=== PATIENT | male | born 2000 | race Caucasian/White ===

== ENCOUNTER 2022-02-09 19:48 | Emergency (ER) | payer MEDICAID, SELFPAY ==
--- NOTE | 2022-02-09 19:52 | EKG12_ITS ---
Test Reason : [facility] [place] Pressure : / mmHG Vent. Rate : 092 BPM Atrial Rate : 092 BPM P-R Int : 158 ms QRS Dur : 100 ms QT Int : 332 ms P-R-T Axes : 045 015 027 degrees QTc Int : 410 ms Normal sinus rhythm Normal ECG Confirmed by ELLEN MARTINEZ, BETHEL ([id number]), school photograph editor KALI HELM ([id number]) on 02/10/2022 1:49:27 PM Referred By: HORACE Confirmed By:BETHEL HUGHES MD
[2022-02-09 19:53] VITALS: BP 150/77; PULSE 103; RESP 16; TEMP 36.7; O2SAT 96; BMI 42.6
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
[2022-02-09 20:59] LABS: Amphetamine Urine VISTA NEGATIVE (<1000 ng/mL); Barbiturate Urine VISTA NEGATIVE (< 200 ng/mL); Benzodiazepine Urine VISTA NEGATIVE (< 200 ng/mL); Cocaine Urine VISTA NEGATIVE (< 300 ng/mL); Ecstacy Urine VISTA NEGATIVE (< 500 ng/mL); Methadone Urine VISTA NEGATIVE (< 300 ng/mL); PCP Urine VISTA NEGATIVE (< 25 ng/mL); THC Urine VISTA NEGATIVE (< 50 ng/mL); Vista UDS pH Range 5
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
[2022-02-09 21:24] LABS: Absolute Neutrophil Count 10.7 X10^3/uL (2.0-7.7); Basophil# 0.05 X10^3/uL; Basophil% 0.4 % (0-1); Eosinophil# 0.08 X10^3/uL; Eosinophils% 0.6 % (0-5); Hematocrit 48.1 % (40-54); Hemoglobin 16.8 g/dL (13.0-16.5); Lymphocyte % 14.7 % (19-41); Mean Corp Hgb Conc 34.9 g/dL (32-36); Mean Corpuscular Hgb 30.1 pg (27.0-32.0); Mean Platelet Vol. 9.5 fl (6.2-12.0); Monocyte# 0.76 X10^3/uL; Monocyte% 5.6 % (0-10); NRBC Flagged by Analyzer 0 % (0-5); Neutrophil # 10.65 X10^3/uL (2.7-7.7); Neutrophil % 78.3 % (47-70); Platelet Count 265 K/mm3 (150-450); RBC Distribution Width CV 12.8 % (11.6-14.6); RBC Distribution Width SD 39.7 fl (35.1-43.9); Red Blood Count 5.59 M/mm3 (4.6-6.2); White Blood Count 13.6 K/mm3 (4.4-11.0)
[2022-02-09 21:37] LABS: Anion Gap 8 (5-15); BUN 16 mg/dL (7-18); BUN/Creat Ratio 14.2 RATIO (10-20); Calcium,Total 9.5 mg/dL (8.5-10.1); Chloride 106 mmol/L (98-107); Creatinine, Serum 1.13 mg/dL (0.70-1.30); EST Glomerular Filtration Rate 88 mL/min (>60); Est Glom Filt Rate - Afr Amer 106 mL/min (>60); Glucose 118 mg/dL (74-106); Potassium 3.5 mmol/L (3.5-5.1); Sodium Level 139 mmol/L (136-145)
--- NOTE | 2022-02-09 22:18 | CM.ED ---
ÁLVARO called Dario at [facility]. They have beds. ÁLVARO faxed referral to [facility] for review. ÁLVARO faxed covid screen, when completed to [facility]. Xochitl MCCALL
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
--- NOTE | 2022-02-09 22:27 | CM.ED ---
ÁLVARO called Dario at [facility]. Dario said that patient did well the past 2 times he was at their facility but declined patient possibility due to the acuity on the unit. ÁLVARO called Jeri at Crisis and updated her. ÁLVARO faxed referral packet to Jeri. ÁLVARO asked if there was anything additional Jeri needed and she said no. ÁLVARO updated [facility] charge and RN Juanita. Plan: Inpatient psych to be determined Xochitl MCCALL
[2022-02-09 23:25] VITALS: PULSE 76; RESP 17
[2022-02-10 00:13] VITALS: PULSE 67; RESP 16
[2022-02-10 02:00] VITALS: RESP 16
[2022-02-10] MEDS: hydrOXYzine PAM 25 MG Capsule 50 MG PO (03:11)
[2022-02-10] MEDS: ARIPiprazole 10 MG Tablet PO (03:11)
[2022-02-10 03:12] VITALS: BP 133/61; PULSE 87; RESP 16; O2SAT 97
[2022-02-10 05:00] VITALS: BP 129/63; PULSE 87; RESP 16; TEMP 37.1; O2SAT 96
[2022-02-10 05:34] VITALS: BP 129/63; PULSE 87; RESP 15; TEMP 37.1; O2SAT 96
--- NOTE | 2022-02-10 07:22 | NURSING ---
faxed pink slip to [facility] [phone]
== END 2022-02-10 07:22 ==
PROVIDERS: Emergency Provider Emergency Medicine; PCP Family Medicine; Visit Provider Emergency Medicine
DX: F25.9 Schizoaffective disorder, unspecified (principal); F31.9 Bipolar disorder, unspecified; R45.850 Homicidal ideations; R45.851 Suicidal ideations; Z87.891 Personal history of nicotine dependence
CPT/HCPCS: 80048; 80307; 82077; 85025; 87811; 93005; 99285

== ENCOUNTER 2023-10-18 09:33 | Emergency (ER) | payer MEDICAID, SELFPAY ==
[2023-10-18] VITALS (8 sets, daily range): BP systolic 126–147; BP diastolic 67–81; PULSE 74–117; RESP 14–18; TEMP 35.9–36.7; O2SAT 97–99; BMI 46.6
--- NOTE | 2023-10-18 09:48 | EKG12_ITS ---
Test Reason : Blood Pressure : / mmHG Vent. Rate : 115 BPM Atrial Rate : 115 BPM P-R Int : 128 ms QRS Dur : 094 ms QT Int : 316 ms P-R-T Axes : 050 011 028 degrees QTc Int : 437 ms Sinus tachycardia Otherwise normal ECG Confirmed by GAVIN MARTINEZ, GAVI ([id number]), development editor TAMMIE LITTLE ([id number]) on 10/19/2023 8:18:23 AM Referred By: Confirmed By:GAVI ALONSO MD
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
[2023-10-18 10:26] LABS: Bacteria 0 SEEN /hpf (None Seen); Mucous, Urine 0 SEEN /hpf (<or=2+); Red Blood Cells-Urine 0 SEEN /hpf (0-5); Squamous Epithelial Cells - UA 0 SEEN /hpf (0-5)
[2023-10-18 10:35] LABS: Color, Urine Yellow (Yellow); Glucose, Dipstick Normal (Normal); Ketone-Dipstick Negative (Negative); Leukocyte Esterase-Dipstick 25 /ul (Negative); Nitrite-Dipstick Negative (Negative); Occult Blood-Urine Negative /ul (Negative); Protein-Dipstick 15 mg/dl (Negative); Specific Gravity, Urine 1.015 (1.002-1.030); Urine Bilirubin Dipstick Negative (Negative); Urine Clarity Clear (Clear); Urine Urobilinogen Normal (Normal)
[2023-10-18 10:37] LABS: White Blood Cells 0-5 SEEN /hpf (0-5)
[2023-10-18 11:03] LABS: Amphetamine Urine VISTA NEGATIVE (<1000 ng/mL); Barbiturate Urine VISTA NEGATIVE (< 200 ng/mL); Benzodiazepine Urine VISTA NEGATIVE (< 200 ng/mL); Cocaine Urine VISTA NEGATIVE (< 300 ng/mL); Ecstacy Urine VISTA NEGATIVE (< 500 ng/mL); Methadone Urine VISTA NEGATIVE (< 300 ng/mL); PCP Urine VISTA NEGATIVE (< 25 ng/mL); THC Urine VISTA POSITIVE (< 50 ng/mL); Vista UDS pH Range 5
[2023-10-18 11:29] LABS: Hematocrit 45.2 % (40-54); Hemoglobin 15.2 g/dL (13.0-16.5); Mean Corp Hgb Conc 33.6 g/dL (32-36); Mean Corpuscular Hgb 29.1 pg (27.0-32.0); Mean Corpuscular Volume 86.4 fL (80-94); Mean Platelet Vol. 9.9 fl (6.2-12.0); Platelet Count 280 K/mm3 (150-450); RBC Distribution Width CV 12.9 % (11.6-14.6); RBC Distribution Width SD 40.2 fl (35.1-43.9); Red Blood Count 5.23 M/mm3 (4.6-6.2); White Blood Count 10.6 K/mm3 (4.4-11.0)
[2023-10-18 11:42] LABS: AST(SGOT) 24 U/L (15-37); Alanine Aminotransfer ALT/SGPT 39 U/L (16-61); Albumin, Serum 3.6 g/dL (3.2-5.0); Alkaline Phosphatase 104 U/L (45-117); Anion Gap 4 (5-15); BUN 23 mg/dL (7-18); BUN/Creat Ratio 23.8 RATIO (10-20); Bilirubin, Direct 0.09 mg/dL (0.00-0.30); Calcium,Total 9.1 mg/dL (8.5-10.1); Chloride 106 mmol/L (98-107); Creatinine, Serum 0.97 mg/dL (0.70-1.30); EST Glomerular Filtration Rate 103 mL/min (>60); Est Glom Filt Rate - Afr Amer 125 mL/min (>60); Estimated Creatinine Clearance 154.57 ml/min; Globulin 3.7 g/dL (2.2-4.2); Glucose 130 mg/dL (74-106); Potassium 4.3 mmol/L (3.5-5.1); Protein, Total 7.3 g/dL (6.4-8.2); Sodium Level 137 mmol/L (136-145)
[2023-10-18 11:48] LABS: Alcohol, Blood (Medical)-Serum < 3.0 mg/dL
--- NOTE | 2023-10-18 13:32 | ED.RN ---
PT ORDERED REG MEAL TRAY, NOT HARM TO SELF OR OTHERS
--- NOTE | 2023-10-18 14:45 | ED.RN ---
PT GOT DRESSED AND WANTING TO LEAVE. GIVEN MEAL. AND EATING CURRENTLY. TO ASSIST INTO A GOWN AFTER EATING.
--- NOTE | 2023-10-18 15:58 | ED.RN ---
DISCUSSED PLAN OF CARE AND UPDATED ON WAITING FOR CRISIS COUNSELOR. ASSISTED PT WITH PUTTING GOWN BACK ON AND REMOVED CLOTHING AND BELONGINGS FROM ROOM. PT VERY HEARD TO REDIRECT, APPEARS TO HAVE DIFFICULTY PROCESSING AND FOLLOWING THROUGH ON DIRECTIONS. BIZZARRE FLAT AFFECT. COOPERATIVE WITH MUCH REINFORCEMENT AND EXTRA TIME.
--- NOTE | 2023-10-18 16:00 | ED.RN ---
RESTING QUIETLY IN BED
--- NOTE | 2023-10-18 18:45 | ED.RN ---
SPOKE WITH [facility]OO[facility], HAVE ACCEPTING DR HARLEY. THEY WILL CALL CRISIS TO LET THEM KNOW WELL.
== END 2023-10-18 23:49 ==
PROVIDERS: Emergency Provider Emergency Medicine; PCP Family Medicine; Visit Provider Emergency Medicine
DX: F20.9 Schizophrenia, unspecified (principal); F31.9 Bipolar disorder, unspecified; T43.596A Underdosing of other antipsychotics and neuroleptics, initial encounter; Z91.148 Patient's other noncompliance with medication regimen for other reason; F17.210 Nicotine dependence, cigarettes, uncomplicated; Z79.899 Other long term (current) drug therapy
CPT/HCPCS: 36415; 80048; 80076; 80307; 80320; 81001; 85027; 93005; 99283; A4216; G0480

== ENCOUNTER 2024-10-24 13:17 | Outpatient (CLI) | payer MEDICAID, SELFPAY ==
[2024-10-24 13:50] LABS: Absolute Lymphocyte Count 2.99 X10^3/uL (0.83-4.51); Absolute Neutrophil Count 4.2 X10^3/uL (2.0-7.7); Basophil# 0.07 X10^3/uL; Basophil% 0.8 % (0-1); Eosinophil# 0.47 X10^3/uL; Eosinophils% 5.7 % (0-5); Hematocrit 45.3 % (40-54); Hemoglobin 15.9 g/dL (13.0-16.5); Lymphocyte # 2.99 X10^3/ul (0.83-4.51); Mean Corp Hgb Conc 35.1 g/dL (32-36); Mean Corpuscular Hgb 29.2 pg (27.0-32.0); Mean Corpuscular Volume 83.3 fL (80-94); Mean Platelet Vol. 9.2 fl (6.2-12.0); Monocyte# 0.57 X10^3/uL; Monocyte% 6.9 % (0-10); NRBC Flagged by Analyzer 0 % (0-5); Neutrophil # 4.16 X10^3/uL (2.7-7.7); Platelet Count 278 K/mm3 (150-450); RBC Distribution Width CV 12.3 % (11.6-14.6); RBC Distribution Width SD 36.9 fl (35.1-43.9); Red Blood Count 5.44 M/mm3 (4.6-6.2); White Blood Count 8.3 K/mm3 (4.4-11.0)
[2024-10-24 15:17] LABS: Valproic Acid (Depakene) Level 29 ug/mL (50-100)
[2024-10-24 15:38] LABS: ALB/GLOB Ratio 1.3 RATIO (0.9-2.4); AST(SGOT) 18 U/L (<=37); Alanine Aminotransfer ALT/SGPT 19 U/L (<=46); Albumin, Serum 4.3 g/dL (3.5-5.0); Alkaline Phosphatase 89 U/L (40-129); Anion Gap 12 (5-15); BUN 15 mg/dL (4-19); BUN/Creat Ratio 16.5 RATIO (10-20); Calcium,Total 9.6 mg/dL (7.6-11.0); Carbon Dioxide 24.1 mmol/L (21.0-32.0); Chloride 100 mmol/L (98-108); Cholesterol 174 mg/dL (<=190); Creatinine, Serum 0.91 mg/dL (0.70-1.20); EST Glomerular Filtration Rate 122 (>60); Globulin 3.3 g/dL (2.2-4.2); Glucose 120 mg/dL (70-99); High Density Lipoprotein 50 mg/dL; Low Density Lipoprotein Calc. 97 mg/dL; Protein, Total 7.6 g/dL (5.9-8.4); Sodium Level 136 mmol/L (133-145); Total Bilirubin 0.46 mg/dL (0.00-1.30); Triglycerides 136 mg/dL; Very Low Density Lipoprotein 27 mg/dL (5-40); Vitamin D,25 Hydroxy 18.9 ng/mL (30-100)
[2024-10-24 15:50] LABS: Hemoglobin A1c 5.7 % (<=5.6)
== END 2024-10-24 23:59 | disposition home or self-care (01) ==
DX: Z79.899 Other long term (current) drug therapy (principal)
CPT/HCPCS: 36415; 80053; 80061; 80164; 82140; 82306; 83036; 84443; 85025